=== PATIENT | male | born 1975 | race American Indian/Alaskan Native ===

== ENCOUNTER 2018-12-11 09:12 | Emergency (ER) | payer OTHER ==
[2018-12-11 09:35] VITALS: BP 124/77
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
== END 2018-12-11 11:50 | disposition home or self-care (01) ==
LOC: ED 09:12
DX: M54.2 Cervicalgia (principal); M54.6 Pain in thoracic spine; M79.604 Pain in right leg; F17.200 Nicotine dependence, unspecified, uncomplicated; V49.9XXA Car occupant (driver) (passenger) injured in unspecified traffic accident, initial encounter; Y93.89 Activity, other specified; Y92.488 Other paved roadways as the place of occurrence of the external cause; Y99.8 Other external cause status
CPT/HCPCS: 99282